=== PATIENT | female | born 1945 | race Caucasian/White ===

== ENCOUNTER 2016-07-21 11:30 | Inpatient (IN) ==
[2016-07-21] MEDS ORDERED: CARDIZEM IV ONE (11:49)
[2016-07-21] MEDS ORDERED: ASPIRIN PO STA (11:49)
--- NOTE | 2016-07-21 11:53 | PROVIDER DOCUMENTATION ---
HPI-Cardiac General - General Chief Complaint: Palpitations Stated Complaint: PAPITATIONS Time Seen by Provider: 07/21/16 11:39 Source: patient Allergies/Adverse Reactions: Patient Allergies Allergy/AdvReac Type Severity Reaction Status Date / Time No Known Allergies Allergy Verified 07/21/16 12:36 Home Medications: Home Medication List Medication Instructions Recorded Confirmed Last Taken Type No Home Medications 07/21/16 07/21/16 Unknown History - History of Present Illness-Cardiac Nature of Presenting Problem: patient is a 71 y/o F that presents to the ER after having abnormal ekg prior to having cataract removal surgery. patient reports being anxious and hasn't had food since midnight. she reports having palpitations before due to lack of food. Denies chest pain or recent illness Quality of Pain: reports: none Severity in ED: moderate Onset/Duration: unsure Timing: still present Context/Activities at Onset: reports: other (no food since midnight) Modifying Factors: improves with: nothing Palpitation Quality: fast/pounding heart beat History of arrythmia: reports: none Recent use of:: reports: no stimulants Nitro Today/Relief: reports: no nitro taken today Prior Chest Pain/Cardiac Workup: reports: no prior chest pain Associated Symptoms: reports: shortness of breath. denies: back pain, diaphoresis, dizziness, edema, fatigue, fever/chills, nausea, vomiting Similar Symptoms Previously?: Yes Recently Seen Here or By Another Healthcare Provider: No Review of Systems - Adult - REVIEW OF SYSTEMS - ADULT Constitutional: denies: chills, fever, fatique Eyes: reports: no symptoms reported Ears, Nose, Mouth & Throat: reports: no symptoms reported Cardiovascular: reports: palpitations. denies: chest pain, syncope Respiratory: reports: shortness of breath. denies: cough, dyspnea on exertion, wheezing Gastrointestinal: denies: abdominal pain, diarrhea, nausea, vomiting Genitourinary: reports: no symptoms reported Musculoskeletal: reports: no symptoms reported Integumentary: reports: no symptoms reported Neurological: denies: dizziness/vertigo, headache/migraines, syncope Psychiatric: reports: no symptoms reported Endocrine: reports: no symptoms reported Hematologic/Lymphatic: reports: no symptoms reported Allergic/Immunologic: reports: no symptoms reported All Other Systems: Reviewed and Negative Past History - Adult - PAST MEDICAL HISTORY-ADULT Review of Records: reports: Old Records Reviewed, Nursing Assessment Review, Medications Reviewed - PRIOR SURGERIES/PROCEDURES Surgical/Procedure History: reports: reviewed, not pertinent - IMMUNIZATION STATUS Childhood Immunizations: See Nurse Assessment Flu Vaccine: See Nurse Assessment - FAMILY HISTORY Family History: reviewed, not pertinent - SOCIAL HISTORY Smoking: non-smoker Living Situation: family Physical Exam-General - PHYSICAL EXAM-ADULT Initial Vital Signs Reviewed: Yes - CONSTITUTIONAL General Appearance: alert, no apparent distress - EYES Eyes: PERRL/EOMI, pink conjunctivae - HEAD, EARS, NOSE, MOUTH & THROAT HENMT: normocephalic/atraumatic, moist mucous membranes, normal ENT inspection - NECK Neck: full range of motion, normal inspection - RESPIRATORY Respiratory: lungs clear, normal breath sounds, no respiratory distress, no accessory muscle use - CARDIOVASCULAR Cardiovascular: no JVD, no murmur, irregularly irregular - GASTROINTESTINAL (ABDOMEN) Abdominal Exam: normal bowel sounds, non tender, soft, no organomegaly, no pulsatile mass - MUSCULOSKELETAL Back Exam: no CVA tenderness, no vertebral tenderness Extremity: normal range of motion, normal inspection, no pedal edema, normal capillary refill - SKIN Integumentary: normal color, warm/dry - NEUROLOGIC Neurologic: grossly normal, no motor/sensory deficits - PSYCHIATRIC Psych/Mental Status: normal mood/affect, normal thought content, normal thought process, oriented x 3 Progress - PLAN OF CARE/RESULTS Progress/Plan/Lab Results: plan of care-labs, meds, ekg, cxr Vital Signs Temp Pulse Resp BP Pulse Ox 07/21/16 12:41 103 H 19 127/94 97 07/21/16 12:30 153 H 124/104 99 07/21/16 11:43 98.2 F 175 H 18 133/101 100 No Known Allergies Allergy (Verified 07/21/16 12:36) No Home Medications 07/21/16 I&O 07/20/16 07/21/16 07/22/16 06:59 06:59 06:59 Output Total 60 Balance -60 Laboratory 07/21/16 07/21/16 07/21/16 12:29 12:29 12:29 WBC RBC Hgb Hct MCV MCH MCHC RDW Std Deviation Plt Count MPV Neut % (Auto) Lymph % (Auto) [place] % (Auto) Eos % (Auto) Baso % (Auto) Neut # (Auto) Lymph # (Auto) [place] # (Auto) Eos # (Auto) Baso # (Auto) PT 10.4 INR 1.02 PTT (Actin FS) 24.2 D-Dimer Sodium Potassium Chloride Carbon Dioxide Anion Gap BUN Creatinine Estimated GFR/1.73 m2 BUN/Creatinine Ratio Glucose Calculated Osmolality Calcium Magnesium Total Bilirubin AST ALT Alkaline Phosphatase Creatine Kinase Troponin T < 0.010 [id number]-[id number] Pept 2355 H Total Protein Albumin Globulin Albumin/Globulin Ratio 07/21/16 07/21/16 07/21/16 12:29 12:29 12:29 WBC 9.02 RBC 4.80 Hgb 15.6 Hct 46.9 MCV 97.7 MCH 32.5 H MCHC 33.3 RDW Std Deviation 13.1 Plt Count 214 MPV 10.5 H Neut % (Auto) 74.5 Lymph % (Auto) 16.4 L [place] % (Auto) 9.0 Eos % (Auto) 0.1 Baso % (Auto) 0.0 Neut # (Auto) 6.72 H Lymph # (Auto) 1.48 [place] # (Auto) 0.81 H Eos # (Auto) 0.01 Baso # (Auto) 0.00 PT INR PTT (Actin FS) D-Dimer 0.26 Sodium 139 Potassium 4.0 Chloride 100 Carbon Dioxide 23 L Anion Gap 16 BUN 17 Creatinine 0.9 Estimated GFR/1.73 m2 > 60 BUN/Creatinine Ratio 19 Glucose 102 Calculated Osmolality 279 Calcium 9.9 Magnesium 1.9 Total Bilirubin 0.53 AST 20 ALT 11 Alkaline Phosphatase 76 Creatine Kinase 87 Troponin T Kba-I-Agjxkdnkgnx Pept Total Protein 7.9 Albumin 4.5 Globulin 3.4 Albumin/Globulin Ratio 1.3 Orders Category Date Time Status Cardiac Monitoring DIRECTED Care 07/21/16 11:50 Active Saline Loc NOW Care 07/21/16 11:50 Active CHEST-2 VIEWS [RAD] Stat Exams 07/21/16 11:50 Taken CBC WITH ELECTRONIC DIFF [HEME] Stat Lab 07/21/16 12:29 Completed CK PROFILE [SP CHEM] Stat Lab 07/21/16 12:29 Completed COMPREHENSIVE METABOLIC PANEL [CHEM] Stat Lab 07/21/16 12:29 Completed D-DIMER [CHEM] Stat Lab 07/21/16 12:29 Completed MAGNESIUM [CHEM] Stat Lab 07/21/16 12:29 Completed PRO B-NATRIURETIC PEPTIDE Stat Lab 07/21/16 12:29 Completed PROTIME WITH INR [COAG] Stat Lab 07/21/16 12:29 Completed PTT [COAG] Stat Lab 07/21/16 12:29 Completed TROPONIN T Stat Lab 07/21/16 12:29 Completed Aspirin Med 07/21/16 11:49 Discontinued 325 mg PO STAT STA Diltiazem [Cardizem] Med 07/21/16 11:49 Discontinued 10 mg IV NOW ONE EKG [EKG] Stat Ther 07/21/16 11:50 Draft - REASSESSMENT Reassessment #1 Time Reassessed: 13:35 Status: unchanged Reassessment Comment: hr in 130s 140s, pt told about admission, pt is unsure about staying - EKG 1 Time of EKG reading by physician:: 11:38 EKG Read and Signed by:: Dony Ojeda EKG Interpretation (*Must complete 3 of following elements*): Abnormal Rate: 165 Rhythm: a-fib with rvr [place]: left ST Wave: non-specific ST changes - CONSULTS/PCP/HOSPITALIST Notification #1 *Consult/PCP/Hospitalist*: ( hospitalist) Time Discussed: 13:56 Consult Disposition: Will see in ED, Admit Departure - Departure Time of Disposition Order: 13:55 DIAGNOSIS: New onset a-fib Disposition: ADMITTED INPATIENT 09 Certified Medical Emergency: Emergent Condition: Stable - Critical Care Note Total Time (mins): 45 Critical Care Statement: This patient required my direct personal management to treat or rule out processes, the absence of which, could potentiallly result in sudden, clinically significant life or limb threatening deterioration. Attestation - Scribe Verification/Attestation Scribe:: Nadir Zabala Acting as Scribe for:: Dony Ojeda Scribe documention review:: This chart was documented by a scribe and accurately reflects the service the provider performed and the decisions made by the provider. Physician Attestation - Physician Attestation I, the provider, attest to the following statement:: Dony Ojeda Physician documentation Attestation:: This documentation recorded by the scribe accurately reflects the service I personally performed and the decisions made by me.
[2016-07-21 12:38] LABS: MANUAL DIFF NEEDED? NO
[2016-07-21 12:43] LABS: EOS# 0.01 X1000 (0.0-0.7); EOS% 0.1 % (0.0-10.0); HEMATOCRIT 46.9 % (37.0-47.0); HEMOGLOBIN 15.6 g/dL (12.0-16.0); LYMPH# 1.48 X1000 (1.2-3.4); LYMPH% 16.4 % (20.5-51.1); MCH 32.5 PG (27-31); MCHC 33.3 g/dL (33-37); MCV 97.7 FL (81-99); MONO# 0.81 X1000 (0.11-0.59); MPV 10.5 FL (7.4-10.4); NEUT% 74.5 % (42.2-75.2); PLT 214 X1000 (130-400)
[2016-07-21 12:57] LABS: PROTIME 10.4 Seconds (9.2-11.7); PTT 24.2 Seconds (22.0-36.0)
[2016-07-21 12:58] LABS: INR 1.02
--- NOTE | 2016-07-21 13:04 | EKG Report ---
Test Performed on : 07/21/2016 11:38:15 AM Test Reason : Chest Pain Blood Pressure : / mmHG Vent. Rate : 165 BPM Atrial Rate : 468 BPM P-R Int : 000 ms QRS Dur : 088 ms QT Int : 280 ms P-R-T Axes : 000 -40 075 degrees QTc Int : 463 ms Atrial fibrillation. with rapid ventricular response. Left axis deviation Nonspecific ST and T wave abnormality Abnormal ECG No previous ECGs available Unconfirmed Result
[2016-07-21 13:08] LABS: AGAP 16; ALBUMIN 4.5 g/dL (3.5-5.0); ALKALINE PHOSPHATASE 76 U/L (32-104); BUN 17 mg/dL (8-22); CALCIUM 9.9 mg/dL (8.8-10.2); CHLORIDE 100 mmol/L (98-107); CK PROFILE 87 U/L (24-173); COSMO 279; GOT 20 U/L (10-30); GPT 11 U/L (10-36); MAGNESIUM 1.9 mg/dL (1.5-2.7); SODIUM 139 mmol/L (136-145); TCO2 23 mmol/L (25-35); TOTAL BILIRUBIN 0.53 mg/dL (0.20-1.00); TOTAL PROTEIN 7.9 g/dL (6.3-8.3)
[2016-07-21] MEDS: CARDIZEM 100 MG/NS 100 ML IV SCH ×2 (14:00→14:42)
--- NOTE | 2016-07-21 14:11 | Diag Imaging Result Document ---
PROCEDURE NAME: CHEST-2 VIEWS - 07/21/2016 PA AND LATERAL RADIOGRAPH OF THE CHEST: COMPARISON: None available. FINDINGS: The lungs may be mildly hyperinflated suggesting possible mild COPD. The lungs are grossly clear, otherwise. There is no definite pleural fluid collection. Cardiac silhouette and central vasculature are grossly unremarkable. IMPRESSION: Questionable hyperinflation would suggest possible mild COPD. No definite acute pathology.
[2016-07-21 15:22] LABS: URINE SOURCE CLEAN CATCH
[2016-07-21 15:27] LABS: BILIRUBIN URINE NEGATIVE (NEGATIVE); BLOOD URINE MODERATE (NEGATIVE); COLOR YELLOW; GLUCOSE URINE NEGATIVE (NEGATIVE); LEUKOCYTES URINE NEGATIVE (NEGATIVE); NITRITE URINE NEGATIVE (NEGATIVE); PH URINE 5.5; PROTEIN URINE 30 mg/dL (NEGATIVE); SP GRAVITY URINE 1.029; URINE MICRO REVIEW NEEDED? YES; UROBILINOGEN URINE NORMAL (NORMAL)
[2016-07-21 15:37] LABS: UR EPITHELIAL CELLS <10 /HPF (<10); URINE BACTERIA NEGATIVE /HPF; URINE RBC <10 /HPF (<10); URINE WBC <10 /HPF (<10)
[2016-07-21 15:44] LABS: TURBIDITY URINE HAZY (CLEAR)
[2016-07-21 16:09] LABS: URINE CRYSTALS CA OXALATE PRESENT
--- NOTE | 2016-07-21 16:32 | CONSULTATION ---
DATE OF CONSULTATION: 07/21/2016 HISTORY OF PRESENT ILLNESS: Ms. Ambar Theodore is a 71-year-old, healthy lady who is not on any medications. She does not have any diabetes, hypertension, coronary artery disease or strokes in the past. She was in the doctor's office to evaluate for cataract surgery when she was noted to have irregular heartbeat and sent to the emergency room. She was noted to be in atrial fibrillation and rapid ventricular rate, started on a Cardizem drip. Over the last couple of years she has had occasional episodes of palpitations twice a year. Her brother has had atrial fibrillation with ablations as well. She does not complain of any chest pain. There is no orthopnea. There is no shortness of breath. She is otherwise very active. There is no history of dizziness or syncope. REVIEW OF SYSTEMS: A 14 point review of system was done.GI systems: There is no history of nausea, vomiting, diarrhea. There is no history of obvious melena. Central nervous system: No focal weakness to suggest a CVA. GI/ system: There is no dysuria or hematuria. Respiratory system: There is no history of cough expectoration or hemoptysis. There is no history of fevers or chills. PAST MEDICAL HISTORY: 1. Cataracts. 2. There is no history of hypertension, diabetes coronary artery disease, heart failure or TIA in the past. She is not on any prescription medications at home. 3. She is not known to be allergic to any medications. PHYSICAL EXAMINATION: Vital signs: Blood pressure 133/91. Cardiovascular System: Normal jugular venous pressure. There no thyromegaly. No carotid bruit. First and second heart sounds were heard. There is no S3 gallop. Respiratory System: Normal air entry. There are no crepitations or rhonchi. Abdomen: Soft, nontender. There was no guarding or rigidity. Bowel sounds were heard. Central nervous system: Alert and was moving all 4 extremities. Extremities: Examination of extremities revealed no pedal edema. HEENT: Atraumatic, normocephalic. Pupils were equal and reacting to light. LABORATORY EXAMINATION: WBC 9, hemoglobin 15, hematocrit 46, platelet count of 214. Chemistry: Sodium 139, potassium 4.0, BUN 17, creatinine 0.7. First set of cardiac enzymes negative at 0.010. Troponin was normal, CK was 87. ProBNP abnormal at 2355. ASSESSMENT AND PLAN: Ms. Ambar Theodore is a 71-year-old, healthy lady who has only issues with cataract. 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 She is admitted with atrial fibrillation, rapid ventricular rate. She was started on a Cardizem drip. She does not have any increased risk of cerebrovascular accident. Her CHADS-VASc score is 1. She is on Lovenox and Cardizem. RECOMMENDATIONS: 1. We will rule out myocardial infarction by cardiac enzymes. 2. We will get an EKG in the morning. 3. We will get an echocardiogram to assess cardiac and valvular function. 4. We will get a thyroid profile. 5. Potassium and magnesium were therapeutic. If she remains in atrial fibrillation, we will plan for a cardioversion in the morning. If she converts to sinus rhythm, we will then plan for a stress test to make sure there is no ischemia. Thank you for the consult. We will follow hospital course.
[2016-07-21] MEDS ORDERED: TYLENOL PO PRN (16:43)
[2016-07-21] MEDS ORDERED: ZOFRAN IV PRN (16:43)
--- NOTE | 2016-07-21 17:06 | HISTORY AND PHYSICAL ---
PRIMARY CARE PROVIDER: Dr. Beatty. CHIEF COMPLAINT: Fast heart rate. HISTORY OF PRESENT ILLNESS: Ms. Ambar Theodore is a 71-year-old, female whose only history is osteoporosis and cataracts. She was supposed to have cataract surgery this morning, but when she was connected to a heart monitor, it was found to be high and irregular. She had a family member to drive her here. She states that occasionally she has palpitations once or twice a year for about the last 2-3 years, but she always thought it was from not eating enough food. EKG here shows atrial fibrillation with RVR. Rate is 165 beats per minute. Electrolytes are stable with a potassium of 4 and a magnesium level of 1.9. She states that she does have a brother that has a history of atrial fibrillation that had several ablations, but is not aware of any other family members that had irregular heart rate. She denies shortness of breath, chest heaviness, denies chest pain. Denies fever or chills. Denies nausea, vomiting or diarrhea. Denies blood in the urine or stool. We will continue with the Cardizem drip and start her on Lovenox full dose with Cardiology console and Cardizem drip. We will admit her to [facility]. PAST MEDICAL HISTORY: Osteoporosis, but she does not take medications. SURGICAL HISTORY: She had skin surgery on her nose. SOCIAL HISTORY: Denies tobacco. Drinks alcohol about once a year. Denies illicit drug use. FAMILY HISTORY: Mother had heart valve disease and an irregular heart beat. Brother had atrial fibrillation with ablation. REVIEW OF SYSTEMS: Fourteen point review of systems were complete and all were negative except for those mentioned above. ALLERGIES: No known drug allergies. HOME MEDICATIONS: None. LABORATORY DATA: White blood cells 9000, hemoglobin 15, hematocrit 46, platelet count 214,000. INR 1.02. PTT is 24. D-dimer 0.26. Sodium 139, potassium 4, BUN 17, creatinine 0.9, glucose 102, magnesium 1.9. Liver enzymes negative. ProBNP 2355. Urinalysis: 30 protein, 10 ketones, moderate blood, nitrites negative. IMAGING: Chest x-ray: Questionable hyperinflation which suggests possible mild COPD, no definite acute pathology. EKG: Atrial fibrillation with RVR, rate 165, and left axis deviation. PHYSICAL EXAMINATION: VITAL SIGNS: Temperature 98.2 degrees, heart rate ranges anywhere from 103 to 175. Respiratory rate 24, blood pressure 130/94, O2 saturation 96% on room air. GENERAL: Ms. Theodore is a 71-year-old, female. She is in no acute distress. She is able answer all questions appropriately. HEENT: Atraumatic, normocephalic. Pupils equal, round, reactive to light. Extraocular movements are intact. NECK: No JVD or carotid bruits noted. CARDIOVASCULAR: Irregularly irregular tachycardic rate and rhythm. No rubs, gallops, murmurs. PULMONARY: Clear to auscultation. Bilateral breath sounds. No accessory muscle use or work of breathing noted. GI: Soft, nontender, nondistended. Positive bowel sounds x4 next. NEUROLOGIC: Alert and oriented x4. Moves all extremities equally. EXTREMITIES: No edema noted. +2 dorsalis and radial pulses. SKIN: Warm, dry, intact. ASSESSMENT AND PLAN: 1. Atrial fibrillation with rapid ventricular response. She received Cardizem intravenous push with a drip started for heart rate control. Started her on Lovenox 1 mg/kg q.12 hours. Consulted Cardiology. We will transfer to [facility]. We will do serial cardiac enzymes and echocardiogram for in the morning. 2. History of osteoporosis. She takes no home medications for this. 3. Deep venous thrombosis prophylaxis. She will be on Lovenox. 4. Gastrointestinal prophylaxis. Proton pump inhibitor. 5. It does appear that she does have some hypertension here, but does not have a diagnoses of it. We will follow up with Cardiology's recommendations. Dictated by SARMAD Price for Serg Lawler MD
[2016-07-21] MEDS: LOVENOX SUBQ SCH (17:10)
[2016-07-21] MEDS: NS 1,000 ML IV SCH (20:23)
[2016-07-22 05:32] LABS: MANUAL DIFF NEEDED? NO
[2016-07-22 05:42] LABS: BASO% 0.1 % (0.0-0.8); EOS# 0.03 X1000 (0.0-0.7); EOS% 0.4 % (0.0-10.0); HEMATOCRIT 42.2 % (37.0-47.0); HEMOGLOBIN 14.1 g/dL (12.0-16.0); LYMPH# 2.24 X1000 (1.2-3.4); LYMPH% 30.4 % (20.5-51.1); MCH 32.3 PG (27-31); MCHC 33.4 g/dL (33-37); MCV 96.8 FL (81-99); MONO# 1.03 X1000 (0.11-0.59); MPV 10.7 FL (7.4-10.4); NEUT% 55.1 % (42.2-75.2); PLT 204 X1000 (130-400); RBC 4.36 XMIL (4.2-5.4)
[2016-07-22 06:02] LABS: AGAP 11; ALBUMIN 3.9 g/dL (3.5-5.0); ALKALINE PHOSPHATASE 66 U/L (32-104); BUN 11 mg/dL (8-22); CALCIUM 8.9 mg/dL (8.8-10.2); CHLORIDE 102 mmol/L (98-107); COSMO 280; GOT 18 U/L (10-30); GPT 8 U/L (10-36); SODIUM 141 mmol/L (136-145); TCO2 28 mmol/L (25-35); TOTAL BILIRUBIN 0.71 mg/dL (0.20-1.00); TOTAL PROTEIN 6.6 g/dL (6.3-8.3)
[2016-07-22] MEDS: LOVENOX SUBQ SCH (06:06)
[2016-07-22] MEDS: PRILOSEC PO SCH (06:07)
[2016-07-22] MEDS: NS 1,000 ML IV SCH ×2 (06:07→08:44)
[2016-07-22 06:09] LABS: INR 1.06; PROTIME 10.8 Seconds (9.2-11.7)
[2016-07-22] MEDS: CARDIZEM 100 MG/NS 100 ML IV SCH (06:56)
--- NOTE | 2016-07-22 07:20 | EKG Report ---
Test Performed on : 07/22/2016 06:20:34 AM Test Reason : chest pain Blood Pressure : / mmHG Vent. Rate : 080 BPM Atrial Rate : 416 BPM P-R Int : 000 ms QRS Dur : 090 ms QT Int : 434 ms P-R-T Axes : 000 -29 -73 degrees QTc Int : [address] & T wave abnormality, consider anterolateral ischemia Prolonged QT Abnormal ECG When compared with ECG of 21-JUL-2016 11:38, (Unconfirmed) Vent. rate has decreased BY 85 BPM T wave inversion now evident in Inferior leads T wave inversion now evident in Anterior leads Confirmed by Shraddha ARAYA, Juve Luna ([id number]) on 07/22/2016 3:23:40 PM
[2016-07-22] MEDS: ASPIRIN PO SCH (08:43)
[2016-07-22] MEDS: CARDIZEM CD PO SCH (10:30)
--- NOTE | 2016-07-22 11:15 | PROGRESS NOTE ---
DATE: 07/22/2016 SUBJECTIVE: This patient states that she is feeling better. She denies nausea, vomiting, diarrhea, constipation, chest pain, or shortness of breath. No fever. No chills. OBJECTIVE: Vital Signs: Temperature 98.1 degrees, pulse 71, respiratory rate 14, blood pressure 132/57, and oxygen saturation 100% on room air. HEENT: Head normocephalic. No trauma. PERRLA. Neck: Supple. No JVD. No masses. Central trachea. Chest: Clear to auscultation. No wheezing. No rales. Cardiovascular: Irregularly irregular rate and rhythm. No murmurs. Abdomen: Soft, nontender, nondistended. No hepatosplenomegaly. Extremities: No edema. No clubbing. No cyanosis. Neurological: The patient is alert and oriented x3. No focal neurological deficits. LABORATORY: WBC 7.3, hemoglobin 14.1, hematocrit 42.2, platelets 204,000. Sodium 141, potassium 4, chloride 102, bicarbonate 28, BUN 11, creatinine 0.7 glucose 85, calcium 8.9. Troponins negative x2. Albumin 3.9. TSH 4.1. ASSESSMENT AND PLAN: 1. Atrial fibrillation with rapid ventricular response. Now is rate controlled, but she is still having atrial fibrillation. She is on Cardizem 120 mg daily. Cardiology Department is following this patient. They will decide if this patient needs cardioversion or not. Will monitor. 2. History of osteoporosis. She is not taking any medication for this. 3. Deep vein thrombosis prophylaxis. She will be on Lovenox 1 mg/kg twice a day. 4. Gastrointestinal prophylaxis. We will continue with PPIs. CRITICAL CARE TIME: 30 minutes.
[2016-07-22] MEDS ORDERED: SODIUM CHLORIDE 0.9% 10 ML ONE (13:26)
[2016-07-22] MEDS ORDERED: HURRICAINE SPRAY (DOSE) ONE (13:26)
[2016-07-22] MEDS ORDERED: XYLOCAINE 4% TOPICAL SOLUTION ONE (13:26)
[2016-07-22] MEDS ORDERED: XYLOCAINE 2% VISCOUS ONE (13:26)
[2016-07-22] MEDS ORDERED: CLAVE TWINSITE 32 IN 11959 ONE (14:09)
[2016-07-22] MEDS ORDERED: NS 1,000 ML ONE (14:32)
[2016-07-22] MEDS ORDERED: DIPRIVAN 1% ONE (14:49)
[2016-07-22] MEDS ORDERED: NON-FORMULARY BULK MED TOP PRN (15:36)
--- NOTE | 2016-07-22 15:38 | CARDIAC CATH REPORT ---
PROCEDURE NAME: - PROCEDURE: Cardioversion. INDICATION FOR THE PROCEDURE: Atrial fibrillation. PROCEDURE IN DETAIL: Ms Theodore was brought to the catheterization laboratory in fasting state. Informed consent was obtained. After CASIMIRO was performed, the patient was ensured to be appropriately sedated. The defibrillator was charged to 150 joules and, in synchronized fashion, one shock was delivered. The patient remained in atrial fibrillation. The defibrillator was then placed back in a synchronized fashion and was charged to 200 joules, and shock was again delivered. This successfully converted her out to sinus rhythm. She recovered in the catheterization laboratory with no apparent complications.
--- NOTE | 2016-07-22 15:46 | EKG Report ---
Test Performed on : 07/22/2016 3:32:01 PM Test Reason : post cath Blood Pressure : / mmHG Vent. Rate : 076 BPM Atrial Rate : 076 BPM P-R Int : 152 ms QRS Dur : 082 ms QT Int : 426 ms P-R-T Axes : 065 -17 -55 degrees QTc Int : 479 ms Normal sinus rhythm. ST & T wave abnormality, consider inferior ischemia ST & T wave abnormality, consider anterior ischemia Prolonged QT Abnormal ECG When compared with ECG of 22-JUL-2016 06:20, Sinus rhythm. has replaced Atrial fibrillation. Unconfirmed Result
[2016-07-22] MEDS ORDERED: XARELTO PO SCH (17:00)
--- NOTE | 2016-07-22 18:25 | ECHO REPORT ---
ORDER DATE: 07/22/2016 MEASUREMENTS: Left ventricle end-diastolic diameter: 4.9. Left ventricle end-systolic diameter: 3.9. Posterior wall: 0.9. Septal thickness: 0.9. Left atrium: 4.7. Aortic root diameter: 2.4. SUMMARY: 1. Adequate quality acoustic windows. 2. Mild sclerosis of trileaflet aortic valve without stenosis with mild (1+) aortic insufficiency. Mitral and tricuspid valves are without evidence of structural abnormality. Pulmonic valve is not well demonstrated. There is [id number]-rt-rxovihox (1+ to 2+) mitral regurgitation and cgdh-[id number]-[id number] (1+ to 2+) tricuspid regurgitation. The estimated systolic PA pressure by Doppler is 40-45 mmHg suggesting mild to moderate pulmonary hypertension. The aortic root is normal size. 3. Normal left ventricular chamber size and wall thickness demonstrated. Estimated left ejection fraction approximately 40% without focal wall motion abnormality. Moderate biatrial enlargement demonstrated. Right ventricle is of normal size. Grossly preserved right ventricular systolic performance. 4. No pericardial effusion. 5. Appearance of the inferior cava suggests normal central venous pressure. 6. Atrial fibrillation with mild tachycardia during study. CONCLUSIONS: 1. Mild aortic valve sclerosis with mild aortic insufficiency. 2. Mild to moderate mitral regurgitation. 3. Mild to moderate tricuspid regurgitation with [id number] pulmonary hypertension by Doppler. 4. Estimated left ejection fraction 40%. 5. Moderate biatrial enlargement. 6. Atrial fibrillation with mild tachycardia during study.
[2016-07-23] MEDS: NS 1,000 ML IV SCH (03:29)
[2016-07-23 05:22] LABS: MANUAL DIFF NEEDED? NO
[2016-07-23 05:34] LABS: BASO% 0.1 % (0.0-0.8); EOS# 0.01 X1000 (0.0-0.7); EOS% 0.1 % (0.0-10.0); HEMATOCRIT 38.6 % (37.0-47.0); HEMOGLOBIN 12.8 g/dL (12.0-16.0); IMM GRAN# 0.02 X1000 (0.0-0.04); IMM GRAN% 0.2 % (0.0-0.5); LYMPH# 1.64 X1000 (1.2-3.4); MCH 32.3 PG (27-31); MCHC 33.2 g/dL (33-37); MCV 97.5 FL (81-99); MONO# 1.46 X1000 (0.11-0.59); MONO% 12.5 % (1.7-9.3); MPV 10.6 FL (7.4-10.4); NEUT% 73.1 % (42.2-75.2); PLT 181 X1000 (130-400); RBC 3.96 XMIL (4.2-5.4)
[2016-07-23 05:52] LABS: AGAP 12; BUN 9 mg/dL (8-22); CALCIUM 8.6 mg/dL (8.8-10.2); CHLORIDE 105 mmol/L (98-107); COSMO 275; POTASSIUM 3.9 mmol/L (3.5-5.1); SODIUM 139 mmol/L (136-145); TCO2 22 mmol/L (25-35)
[2016-07-23 06:21] LABS: HEMOGLOBIN A1C 3.5 % (4.8-6.0)
[2016-07-23] MEDS: PRILOSEC PO SCH (06:38)
[2016-07-23 08:13] VITALS: BP 125/57
[2016-07-23] MEDS: CARDIZEM CD PO SCH (09:11)
[2016-07-23] MEDS: ASPIRIN PO SCH (09:11)
--- NOTE | 2016-07-23 21:44 | DISCHARGE SUMMARY ---
ADMISSION DATE: 07/21/2016 DISCHARGE DATE: 07/23/2016 CONSULTATIONS: Alberto Lynn M.D., Cardiology. PERTINENT PROCEDURES: 1. CASIMIRO cardioversion performed by Dr. Quan Nash that was successful. 2. Echocardiogram showed mild aortic valve sclerosis with mild aortic insufficiency, mild to moderate mitral regurgitation, mild to moderate tricuspid regurgitation with mild to moderate pulmonary hypertension by Doppler, estimated EF of 40%, moderate bilateral enlargement and atrial fibrillation with mild tachycardia during study. DISCHARGE DIAGNOSES: 1. New onset atrial fibrillation with rapid ventricular response. Patient is status post CASIMIRO cardioversion that was successful. She will be going home on Cardizem 120 mg daily as well as Xarelto and low-dose aspirin. She will follow up with Cardiology in 3-4 weeks. 2. Osteoporosis history. Patient takes no home medications. 3. Cataracts. Patient was actually scheduled for cataract surgery on the day that she was diagnosed with atrial fibrillation. HOSPITAL COURSE: Briefly, Ms. Theodore is a 71-year-old, female who has a history of osteoporosis and cataracts. She was actually scheduled to have cataract surgery on the morning of her admission. 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 She had a family member drive her to the ED. She did state occasionally she has some palpitations once or twice a year for the last 2-3 years but thought it was from not eating enough food. EKG in the ED showed atrial fibrillation with RVR, rate of 165. Electrolytes were stable. Potassium of 4, magnesium 1.9. Patient does have a brother with a history of atrial fibrillation and several ablations. She denied any shortness of breath, chest pain or heaviness with this. Patient was pretty much asymptomatic. She was continued on a Cardizem drip as well as full dose Lovenox with a Cardiology consult and admitted to [facility]. Patent was ruled out by mild cardiac enzymes. The patient remained in atrial fibrillation so she did undergo a CASIMIRO with cardioversion that was successful into sinus rhythm. There were no complications. The patient was monitored overnight. She has remained in sinus rhythm. The patient is being discharged today. She will be on a low-dose aspirin, Xarelto as well as Cardizem. She will follow up with Dr. Lynn in 3-4 weeks. VITAL SIGNS: Temperature is 97.7 degrees, heart rate 73, respirations 18, blood pressure 125/ O2 is 97% on room air. DISCHARGE DIET: Healthy heart. DISCHARGE MEDICATIONS: 1. Aspirin 81 mg p.o. daily. 2. Cardizem 120 mg p.o. daily. 3. Xarelto 20 mg p.o. with supper. FOLLOWUP: Patient is being discharged home. She will need to follow up with her primary care physician, Dr. Jimenez Beatty, in 7-10 days as well as her animal trainer, Dr. Lynn. She has appointment on August 19 at 11:15. Patient can return to the ED for any worsening of symptoms. DISCHARGE TIME: 35 minutes. Dictated by SARMAD Salazar for Lamont Wahl MD MTDD
--- NOTE | 2016-07-24 15:12 | Transesophageal Echocardiogram ---
DATE: 07/22/2016 INDICATION: Atrial fib. PROCEDURE IN DETAIL: Ms. Morgan was brought to the catheterization laboratory in fasting state. Informed consent was obtained. She was prepped in usual fashion including viscous lidocaine and Hurricaine spray for oropharyngeal anesthesia. She was sedated via the Anesthesia Services. After appropriate sedation the CASIMIRO probe was passed without difficulty. Images were obtained in multiple planes. At the conclusion of the procedure, the CASIMIRO probe was removed. No complications. FINDINGS: 1. The right atrium is moderately enlarged. There is no evidence of shunting across the interatrial septum via evaluation with color Doppler as well as injection of agitated saline contrast. 2. Mild tricuspid regurgitation is identified. 3. Right ventricle appears to have normal systolic function as well as size. 4. There is no clear evidence of pulmonic insufficiency. 5. There is moderate left atrial enlargement. No clot is visualized in the left atrium or the left atrial appendage. Pulse wave velocity in the left atrial appendage is approaching 50 cm/sec. Color Doppler evaluation of the left atrial appendage does not reveal any clot. 6. There is no evidence of mitral valve prolapse. No suggestion of stenosis either. There are 2 central jets of mild mitral regurgitation. 7. The left ventricle appears to have reduction in LV systolic function approaching the severity of 35-40%. The patient is in atrial fibrillation during this study with rates in the 110s to 120s making estimation difficult. There is no clear evidence of segmental abnormalities. 8. Aortic valve appears trileaflet. It is somewhat sclerotic but it does not appear stenotic. There is mild aortic insufficiency. 9. Aorta appears normal in caliber. There is mild atherosclerosis noted diffusely throughout the descending thoracic aorta. 10. No pericardial effusion identified.
== END 2016-07-23 10:59 | disposition home or self-care (01) | DRG 310 ==
LOC: ED 11:30 → EDIPHOLD 15:47 → 3S 18:31
PROVIDERS: ATTEND Internal Medicine
PROC: 5A2204Z Restoration of Cardiac Rhythm, Single (ICD-10-PCS; principal; 2016-07-22)
PROC: B24BZZ4 Ultrasonography of Heart with Aorta, Transesophageal (ICD-10-PCS; 2016-07-22)
DX: I48.91 Unspecified atrial fibrillation (principal); I27.2 Other secondary pulmonary hypertension; I08.3 Combined rheumatic disorders of mitral, aortic and tricuspid valves; H26.9 Unspecified cataract; M81.0 Age-related osteoporosis without current pathological fracture; R03.0 Elevated blood-pressure reading, without diagnosis of hypertension
CPT/HCPCS: 71020; 80048; 80053; 80061; 81001; 82550; 83036; 83721; 83735; 83880; 84436; 84443; 84484; 85025; 85379; 85610; 85730; 92960; 93005; 93010; 93306; 93312; 96365; 96366; 96372; 96375; J1650; J7030; 99285-25